=== PATIENT | male | born 2000 | race Two or more races ===

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

== ENCOUNTER 2020-02-10 00:03 | Emergency (ER) | payer OTHER ==
--- NOTE | 2020-02-10 00:26 | PDOC ---
History of Present Illness - General Stated Complaint: PAIN Time Seen by Provider: 02/10/20 00:25 History Source: Patient Exam Limitations: No Limitations - History of Present Illness Initial Comments: 02/10/20 00:45 19y previously healthy M presenting w 2wk intermittent moderate epigastric, RUQ, RLQ pain. Not associated w meals. Evaluated at [facility] yesterday and this morning, blood work and CT A/P diagnosed duodenitis and mesenteric lymphadenitis, DC w cephalexin, ibuprofen. Took 2 ibuprofen today w/o relief, last 4pm today. Was not able to f/u w PCP within the next 15 days. Denies fever, n/v, chest pain, SOB, ABD distension, urinary/bowel mvmt changes. Past History - Medical History Allergies/Adverse Reactions: Allergies Allergy/AdvReac Type Severity Reaction Status Date / Time shrimp Allergy Unknown Verified 02/10/20 00:32 Home Medications: Ambulatory Orders Oseltamivir Phosphate [Tamiflu -] 75 mg PO BID #10 capsule 07/01/17 Famotidine [Pepcid] 20 mg PO DAILY 30 Days #30 tablet 02/10/20 Asthma: Yes COPD: No - Psycho-Social/Smoking History Smoking History: Never smoked Review of Systems - Review of Systems Constitutional: No: Chills, Fever HEENTM: No: Eye Pain, Nose Pain Respiratory: No: Cough, Shortness of Breath Cardiac (ROS): No: Chest Pain, Lightheadedness ABD/GI: No: Constipated, Diarrhea, Nausea, Vomiting : No: Burning, Dysuria Musculoskeletal: No: Back Pain, Joint Pain Integumentary: No: Bruising, Dryness Neurological: No: Headache, Seizure Psychiatric: No: Anxiety, Depression Endocrine: No: Intolerance to Cold, Intolerance to Heat Hematologic/Lymphatic: No: Anemia, Blood Clots *Physical Exam - Physical Exam General Appearance: Yes: Nourished, Appropriately Dressed, Mild Distress HEENT: positive: EOMI, FAVIAN, Normal Voice, Hearing Grossly Normal. negative: Scleral Icterus (R), Scleral Icterus (L) Respiratory/Chest: positive: Lungs Clear, Normal Breath Sounds. negative: Chest Tender, Respiratory Distress Cardiovascular: positive: Regular Rhythm, Regular Rate, S1, S2. negative: Edema, Murmur Gastrointestinal/Abdominal: positive: Normal Bowel Sounds, Tender (mild epigastric, RLQ), Flat, Soft. negative: Organomegaly Musculoskeletal: negative: CVA Tenderness (R), CVA Tenderness (L) Integumentary: positive: Normal Color, Warm Neurologic: positive: Fully Oriented, Alert, Normal Mood/Affect, Normal Response ED Treatment Course - LABORATORY CBC & Chemistry Diagram: 02/10/20 01:13 02/10/20 01:13 Medical Decision Making - Medical Decision Making 02/10/20 02:00 19y previously healthy M presenting w 2wk intermittent moderate epigastric, RUQ, RLQ pain GERD vs duodenitis/lymphadenitis. Low concern for pancreatitis (normal lipase) Given pepcid, maalox, 0.5L fluids, tylenol w relief DC home w PCP, GI referrals, pepcid, tylenol, stopped keflex/ibuprofen Discharge - Discharge Information Problems reviewed: Yes Clinical Impression/Diagnosis: Abdominal pain Qualifiers: Abdominal location: epigastric Qualified Code(s): R10.13 - Epigastric pain Condition: Improved Disposition: HOME - Additional Discharge Information Prescriptions: Famotidine [Pepcid] 20 mg PO DAILY 30 Days #30 tablet - Follow up/Referral Referrals: Tristan Noriega MD [Staff Physician] - Camila Tuttle MD [Staff Physician] - - Patient Discharge Instructions Patient Printed Discharge Instructions: DI for Abdominal Pain-Adult Additional Instructions: Your workup did not show anything concerning Take the prescribed Pepcid everyday as directed Take 1000mg tylenol every 6 hours if you have pain Avoid eating fatty/fried/spicy foods STOP taking Ibuprofen STOP taking Cephalexin Follow up with the referred primary care Dr Noriega and GI Dr Tuttle - Post Discharge Activity
[2020-02-10 00:32] VITALS: BP 135/93; PULSE 80; TEMP 98.5; BMI 27.4
[2020-02-10] MEDS ORDERED: MAG HYDROX/AL HYDROX/SIMETH 30 ML UNIT-DOSE CUP PO ONE (00:50)
[2020-02-10] MEDS ORDERED: SODIUM CHLORIDE 0.9% 500 ML INFUS.BAG IV ONE (00:50)
[2020-02-10] MEDS ORDERED: ACETAMINOPHEN 1000 MG/100 ML VIAL (NON FORMULARY) IVPB ONE (00:50)
[2020-02-10] MEDS ORDERED: FAMOTIDINE 20 MG/50 ML IVPB 50 ML IVPB ONE (00:50)
[2020-02-10] MEDS ORDERED: FAMOTIDINE 20 MG/50 ML IVPB 20 MG/50 ML MG IVPB ONE ×2 (01:07→01:09)
[2020-02-10] MEDS ORDERED: MAG HYDROX/AL HYDROX/SIMETH 30 ML UNIT-DOSE CUP ONE (01:08)
[2020-02-10] MEDS ORDERED: ACETAMINOPHEN INJECTION 100 ML IVPB ONE (01:08)
[2020-02-10 01:38] LABS: BASO % 0.6 % (0-2.0); EOS % 4.1 % (0-4.5); HEMATOCRIT 48.3 % (35.4-49); LYMPH % 21.1 % (8-40); MEAN CELL VOLUME 87.8 fl (80-96); MEAN PLT VOLUME 9.4 fl (7.5-11.1); MONO % 9.7 % (3.8-10.2); NEUT % 64.5 % (42.8-82.8); PLATELET COUNT 180 K/MM3 (134-434); RDW 13.1 % (11.9-15.9); WHITE BLOOD COUNT 7.6 K/mm3 (4.0-10.0)
--- NOTE | 2020-02-10 01:44 | PDOC ---
Documentation entered by Rock Prince SCRIBE, acting as scribe for Aleksandr Cormier MD. Aleksandr Cormier MD: This documentation has been prepared by the Suresh trevino Xhesika, SCRIBE, under my direction and personally reviewed by me in its entirety. I confirm that the documentation accurately reflects all work, treatment, procedures, and medical decision making performed by me. Attending Attestation - Resident Resident Name: JennyferDane - ED Attending Attestation I have performed the following: I have examined & evaluated the patient, The case was reviewed & discussed with the resident, I agree w/resident's findings & plan, Exceptions are as noted - HPI HPI: 02/10/20 00:28 The patient is a 19y/o M with a pmh of asthma who presents to the ED with intermittent epigastric and R sided abdominal pain. Pt was seen at [facility] yesterday for similar symptoms, had CT that showed duodenitis and mesenteric adenitis. Also had US that was normal and was DC'ed home with Keflex, Zofran and Motrin. Pt states his symptoms are not improving, prompting his arrival to the ED. Pt denies any CP, SOB, headache, dizziness. Denies fevers, chills, cough, N/V/D. Denies URI symptoms. Allergies: Shrimp PCP: Isaías Sandhu - Physicial Exam PE: 02/10/20 01:44 See resident exam - Medical Decision Making 02/10/20 01:44 19 M with abdominal pain, likely 2/[address] mes[address]eric adenitis found on CT scan from OSH. - Labs - GI cocktail 02/10/20 02:08 Labs wnl Pt re-evaluated, pain improved Tolerating PO Pt is well appearing, with normal vitals. Clinically stable for DC at this time. I discussed the physical exam findings, ancillary test results and final diagnoses with the patient. I answered all of the patient's questions. The patient was satisfied with the care received and felt comfortable with the discharge plan and treatment plan. The patient agrees to follow up with the primary care physician within 24-72 hours. Discharge - Discharge Information Problems reviewed: Yes Clinical Impression/Diagnosis: Abdominal pain Qualifiers: Abdominal location: epigastric Qualified Code(s): R10.13 - Epigastric pain Condition: Improved Disposition: HOME - Additional Discharge Information Prescriptions: Famotidine [Pepcid] 20 mg PO DAILY 30 Days #30 tablet - Follow up/Referral Referrals: Tristan Noriega MD [Staff Physician] - Camila Tuttle MD [Staff Physician] - - Patient Discharge Instructions Patient Printed Discharge Instructions: DI for Abdominal Pain-Adult Additional Instructions: Your workup did not show anything concerning Take the prescribed Pepcid everyday as directed Take 1000mg tylenol every 6 hours if you have pain Avoid eating fatty/fried/spicy foods STOP taking Ibuprofen STOP taking Cephalexin Follow up with the referred primary care Dr Noriega and GI Dr Tuttle - Post Discharge Activity
[2020-02-10 02:02] LABS: BILIRUBIN,TOTAL 0.5 mg/dL (0.2-1); CALCIUM 9.1 mg/dL (8.5-10.1); POTASSIUM 4.3 mmol/L (3.5-5.1); TOT PROT 7.7 g/dl (6.4-8.2)
== END 2020-02-10 02:19 | disposition home or self-care (01) ==
LOC: JER 00:03
PROC: 3E0333Z Introduction of Anti-inflammatory into Peripheral Vein, Percutaneous Approach (ICD-10-PCS; principal; 2020-02-10)
PROC: 3E033GC Introduction of Other Therapeutic Substance into Peripheral Vein, Percutaneous Approach (ICD-10-PCS; 2020-02-10)
DX: R10.13 Epigastric pain (principal)
CPT/HCPCS: 36415; 80053; 83690; 85025; 99284-25; J0131

== ENCOUNTER 2020-10-17 11:48 | Emergency (ER) | payer OTHER ==
[2020-10-17 11:58] VITALS: BMI 25.7
[2020-10-17] MEDS ORDERED: MAG HYDROX/AL HYDROX/SIMETH -MYLANTA- ORAL SUSPENSION PO ONE (12:50)
[2020-10-17] MEDS ORDERED: MAG HYDROX/AL HYDROX/SIMETH 30 ML UNIT-DOSE CUP ONE (13:03)
[2020-10-17] MEDS ORDERED: KETOROLAC TROMETHAMINE 30 MG/1 ML VIAL IM ONE (13:04)
[2020-10-17] MEDS ORDERED: KETOROLAC TROMETHAMINE 30 MG/1 ML VIAL ONE (13:20)
[2020-10-17 13:50] LABS: BASO % 0.6 % (0-2.0); EOS % 3.7 % (0-4.5); HEMATOCRIT 48.2 % (35.4-49); HEMOGLOBIN 16.5 GM/dL (11.7-16.9); LYMPH % 21.9 % (8-40); MCH 30.1 pg (25.7-33.7); MCHC 34.3 g/dl (32.0-35.9); MEAN CELL VOLUME 87.8 fl (80-96); MEAN PLT VOLUME 10.6 fl (7.5-11.1); MONO % 9.6 % (3.8-10.2); NEUT % 64.2 % (42.8-82.8); PLATELET COUNT 175 K/MM3 (134-434); RBC 5.49 M/mm3 (4.00-5.60); RDW 13.4 % (11.9-15.9); WHITE BLOOD COUNT 7.9 K/mm3 (4.0-10.0)
[2020-10-17 14:28] LABS: CALCIUM 8.8 mg/dL (8.5-10.1)
[2020-10-17 14:29] LABS: ALBUMIN 4.1 g/dl (3.4-5.0); BLOOD UREA NITROGEN 11.8 mg/dL (7-18)
[2020-10-17 14:33] LABS: BILIRUBIN,TOTAL 0.5 mg/dL (0.2-1); TOT PROT 7.8 g/dl (6.4-8.2)
[2020-10-17 17:30] VITALS: BP 126/88; PULSE 69; TEMP 98.2
== END 2020-10-17 17:40 | disposition home or self-care (01) ==
LOC: JER 11:48
PROC: 3E023GC Introduction of Other Therapeutic Substance into Muscle, Percutaneous Approach (ICD-10-PCS; principal; 2020-10-17)
DX: R10.11 Right upper quadrant pain (principal)
CPT/HCPCS: 36415; 76705-TC; 80053; 83690; 85025; 99284-25

== ENCOUNTER 2021-11-15 09:57 | Emergency (ER) | payer OTHER ==
[2021-11-15 10:16] VITALS: BP 120/81; PULSE 85; TEMP 98.3; BMI 28.1
[2021-11-15] MEDS ORDERED: PANTOPRAZOLE SODIUM 40 MG VIAL IVPUSH ONE (11:12)
[2021-11-15] MEDS ORDERED: KETOROLAC TROMETHAMINE 15 MG/ML VIAL IVPUSH ONE (11:12)
[2021-11-15] MEDS ORDERED: ONDANSETRON 4 MG/2 ML VIAL IVPUSH ONE (11:12)
[2021-11-15] MEDS ORDERED: ONDANSETRON 4 MG/2 ML VIAL ONE (11:31)
[2021-11-15] MEDS ORDERED: KETOROLAC TROMETHAMINE 15 MG/ML VIAL ONE (11:31)
[2021-11-15] MEDS ORDERED: PANTOPRAZOLE SODIUM 40 MG VIAL ONE (11:31)
[2021-11-15 12:18] LABS: BASO % 0.7 % (0-2.0); EOS % 3.1 % (0-4.5); HEMATOCRIT 47.1 % (35.4-49); LYMPH % 28.9 % (8-40); MCH 28.9 pg (25.7-33.7); MCHC 33.9 g/dl (32.0-35.9); MEAN CELL VOLUME 85.2 fl (80-96); MEAN PLT VOLUME 9.7 fl (7.5-11.1); MONO % 9.1 % (3.8-10.2); NEUT % 58.2 % (42.8-82.8); PLATELET COUNT 164 10^3/uL (134-434); RBC 5.52 M/mm3 (4.00-5.60); RDW 13.5 % (11.9-15.9); WHITE BLOOD COUNT 6.1 K/mm3 (4.0-10.0)
[2021-11-15 12:43] LABS: CALCIUM 9.5 mg/dL (8.5-10.1)
[2021-11-15 12:44] LABS: ALBUMIN 4.1 g/dl (3.4-5.0)
[2021-11-15 12:45] LABS: BLOOD UREA NITROGEN 10.5 mg/dL (7-18)
[2021-11-15 12:49] LABS: TOT PROT 7.8 g/dl (6.4-8.2)
[2021-11-15 12:50] LABS: BILIRUBIN,TOTAL 0.5 mg/dL (0.2-1)
== END 2021-11-15 13:10 | disposition home or self-care (01) ==
LOC: JER 09:57
PROC: 3E033GC Introduction of Other Therapeutic Substance into Peripheral Vein, Percutaneous Approach (ICD-10-PCS; principal; 2021-11-15)
DX: R10.13 Epigastric pain (principal)
CPT/HCPCS: 36415; 76705-TC; 80053; 80061; 83690; 85025; 99284-25